=== PATIENT | male | born 1945 | race Caucasian/White ===

== ENCOUNTER 2021-09-01 13:32 | Emergency (ER) | payer MEDICARE, SELFPAY ==
--- NOTE | ~2021-09-01 | XR_ITS ---
XR chest 2V DATE: 09/01/2021 14:27 INDICATION: Cough for 4 to 5 days. Covid-positive. TECHNIQUE: 2 views COMPARISON: None FINDINGS: Normal heart size. No hilar or mediastinal enlargement. Mild to moderate bilateral hyperinf lation. No pulmonary infiltrate or consolidation, pleural effusion or pulmonary vascular congestion o r pneumothorax. Status post anterior cervical spine surgical fusion. Degenerative spurring of the thoracic and lumbar spine. Upper abdominal surgical clips and lateral view, likely due to cholecystectomy cholecystectomy. IMPRESSION: Mild to moderate hyperinflation; no active cardiopulmonary disease Reviewed, dictated and finalized at location [facility].
[2021-09-01 13:43] VITALS: BP 131/71; PULSE 84; RESP 20; TEMP 36.6; O2SAT 99
--- NOTE | 2021-09-01 14:04 | ED.URI ---
HPI - URI/Sore Throat General Chief Complaint: Upper Respiratory Infection Stated Complaint: not feeling well Time Seen by Provider: 09/01/21 14:04 History of Present Illness HPI Narrative: Luiz Hubbard is a 75 yo male with a PMH of COPD, diabetes, neuropathy, glaucoma, GERD, high cholesterol, chronic anticoagulation, headaches, body aches x 5 days, decreased appetite and fatigue also. Exposed to covid on 08/22. Patient is trying to reestablish his relationship with his primary care physician that he had [facility] who switched to [facility]-he followed her in a practice and has appoint with her on Saturday because she knows him and his comorbidities but she cannot come in to see him unless he is negative for COVID Related Data Home Medications Medication Instructions Recorded Confirmed acetaminophen 500 mg capsule 500 mg PO Q6H PRN Pain 01/18/20 09/01/21 albuterol sulfate 8 mg 8 mg PO Q12H 01/18/20 09/01/21 tablet,extended release,12 hr budesonide-formoterol HFA 160 2 puff inhalation Q12H 01/18/20 09/01/21 mcg-4.5 mcg/actuation aerosol inhaler (Symbicort) cholecalciferol (vitamin D3) 10 10 mcg PO DAILY 01/18/20 09/01/21 mcg (400 unit) capsule fluorouracil 0.5 % topical cream 1 applic topical DAILY 01/18/20 09/01/21 gabapentin 300 mg capsule 300 mg PO DAILY 01/18/20 09/01/21 glipizide 10 mg tablet 10 mg PO DAILY 01/18/20 09/01/21 latanoprost 0.005 % eye drops 1 drp ophthalmic (eye) DAILY 01/18/20 09/01/21 metformin 1,000 mg tablet 1,000 mg PO BID 01/18/20 09/01/21 metronidazole 0.75 % topical cream 1 applic topical BID 01/18/20 09/01/21 pantoprazole 40 mg tablet,delayed 40 mg PO QAM 01/18/20 09/01/21 release pravastatin 40 mg tablet 40 mg PO DAILY 01/18/20 09/01/21 triamcinolone acetonide 0.1 % 1 applic dental BID 01/18/20 09/01/21 dental paste warfarin 3 mg tablet 3 mg PO DAILY 01/18/20 09/01/21 albuterol sulfate 90 mcg/actuation inhalation 09/01/21 aerosol inhaler (Ventolin HFA) alprazolam 0.5 mg tablet 1 tablet PRN Anxiety 09/01/21 budesonide-formoterol HFA 160 inhalation 09/01/21 mcg-4.5 mcg/actuation aerosol inhaler (Symbicort) sertraline 50 mg tablet 1 tablet DAILY 09/01/21 09/01/21 Allergies Allergy/AdvReac Type Severity Reaction Status Date / Time moxifloxacin Allergy Mild unknown Verified 09/01/21 13:50 codeine Allergy Unknown Rash Verified 09/01/21 13:50 hydroxychloroquine Allergy Unknown gi Verified 09/01/21 13:50 discomfort Review of Systems Review of Systems: CONSTITUTIONAL: Denies fever, chills, sweats.fatigue, body aches EYES: Denies visual changes, redness, discharge. ENT: Denies rhinorrhea, congestion, sore throat, otalgia. CARDIOVASCULAR: Denies chest pain, palpitations, edema. RESPIRATORY: Denies dyspnea, wheezing, intermittent cough GASTROINTESTINAL: Denies abdominal pain, nausea, vomiting, diarrhea. GENITOURINARY: Denies dysuria, hematuria, abnormal discharge SKIN: Denies rash or itching. NEUROLOGIC: Denies numbness, or focal weakness. PSYCHIATRIC: Denies anxiety or depression. PMFSH Past Medical History Medical History Diabetes GERD (gastroesophageal reflux disease) High cholesterol Hypertension Neuropathy Social History Social History Smoking status: Never smoker Second hand tobacco smoke exposure: No Alcohol intake: former Substance use: never Substance use type: does not use Exam Narrative: GENERAL: This is a well-nourished, well-developed patient, in mild distress. HEAD: normocephalic, atraumatic. EYES: PERRL. Sclera clear/white. Vision is grossly intact. EARS: External ears normal, auditory canals clear and without drainage, TMs normal without perforation. Hearing grossly intact. NOSE: External nose normal without nasal discharge, nares without redness, no rhinorrhea. THROAT: Mucous membranes moist, posterior pharynx mild erythema NECK
== END 2021-09-01 15:33 | disposition home or self-care (01) ==
PROVIDERS: Emergency Provider Nurse Practitioner
DX: U07.1 COVID-19 (principal); J44.9 Chronic obstructive pulmonary disease, unspecified; E11.40 Type 2 diabetes mellitus with diabetic neuropathy, unspecified; E11.39 Type 2 diabetes mellitus with other diabetic ophthalmic complication; H40.9 Unspecified glaucoma; Z79.84 Long term (current) use of oral hypoglycemic drugs; K21.9 Gastro-esophageal reflux disease without esophagitis; E78.00 Pure hypercholesterolemia, unspecified; Z79.01 Long term (current) use of anticoagulants
CPT/HCPCS: 71046; 87426; 99213; C9803; G0463

== ENCOUNTER 2022-03-03 14:25 | Emergency (ER) | payer MEDICARE, SELFPAY ==
[2022-03-03 14:40] VITALS: BP 110/60; PULSE 88; RESP 18; TEMP 36.8; O2SAT 99
--- NOTE | 2022-03-03 14:42 | ED.GENADULT ---
HPI - General Adult General Chief complaint: Upper Respiratory Infection Stated complaint: Right Ear Irritation/Headache/Fever Time Seen by Provider: 03/03/22 14:42 Source: patient, RN notes reviewed and old records reviewed Mode of arrival: ambulatory Limitations: no limitations History of Present Illness HPI narrative: 76-year-old male presents to the [facility] with a right ear pain, redness, feeling swollen that occurred last weekend. States the pain and redness have resolved. Reports pain pain has traveled to the area around the ear and posterior neck. There are no open wounds, swelling or increased erythema. No increased warmth. Patient reports that yesterday he developed a fever of 99.4 States he has taken Tylenol Onset (ago): week(s) (1) Related Data Home Medications Medication Instructions Recorded Confirmed acetaminophen 500 mg capsule 500 mg PO Q6H PRN Pain 01/18/20 09/01/21 albuterol sulfate 8 mg 8 mg PO Q12H 01/18/20 09/01/21 tablet,extended release,12 hr budesonide-formoterol HFA 160 2 puff inhalation Q12H 01/18/20 09/01/21 mcg-4.5 mcg/actuation aerosol inhaler (Symbicort) cholecalciferol (vitamin D3) 10 10 mcg PO DAILY 01/18/20 09/01/21 mcg (400 unit) capsule fluorouracil 0.5 % topical cream 1 applic topical DAILY 01/18/20 09/01/21 gabapentin 300 mg capsule 300 mg PO DAILY 01/18/20 09/01/21 glipizide 10 mg tablet 10 mg PO DAILY 01/18/20 09/01/21 latanoprost 0.005 % eye drops 1 drp ophthalmic (eye) DAILY 01/18/20 09/01/21 metformin 1,000 mg tablet 1,000 mg PO BID 01/18/20 09/01/21 metronidazole 0.75 % topical cream 1 applic topical BID 01/18/20 09/01/21 pantoprazole 40 mg tablet,delayed 40 mg PO QAM 01/18/20 09/01/21 release pravastatin 40 mg tablet 40 mg PO DAILY 01/18/20 09/01/21 triamcinolone acetonide 0.1 % 1 applic dental BID 01/18/20 09/01/21 dental paste warfarin 3 mg tablet 3 mg PO DAILY 01/18/20 09/01/21 albuterol sulfate 90 mcg/actuation inhalation 09/01/21 aerosol inhaler (Ventolin HFA) alprazolam 0.5 mg tablet 1 tablet PRN Anxiety 09/01/21 budesonide-formoterol HFA 160 inhalation 09/01/21 mcg-4.5 mcg/actuation aerosol inhaler (Symbicort) sertraline 50 mg tablet 1 tablet DAILY 09/01/21 09/01/21 Allergies Allergy/AdvReac Type Severity Reaction Status Date / Time moxifloxacin Allergy Mild unknown Verified 03/03/22 14:41 codeine Allergy Unknown Rash Verified 03/03/22 14:41 hydroxychloroquine Allergy Unknown gi Verified 03/03/22 14:41 discomfort Review of Systems Review of Systems: All systems reviewed & are unremarkable except as noted in HPI and below Constitutional: Constitutional: Reports no additional constitutional complaints Eyes: Eyes: Reports no additional eye complaints ENT: Reports as per HPI Cardiovascular: Cardiovascular: Reports no additional cardiovascular complaints, Denies chest pain and Denies dyspnea Respiratory: Respiratory: Reports no additional respiratory complaints, Denies chest congestion, Denies cough and Denies dyspnea Gastrointestinal: Gastrointestinal: Reports no additional gastrointestinal complaints, Denies abdominal pain, Denies nausea and Denies vomiting Musculoskeletal: Musculoskeletal: Reports no additional musculoskeletal complaints Integumentary/Breasts: Skin/Breast: Reports system reviewed and no additional complaints, except as docu Neurologic: Reports system reviewed and no additional complaints, except as documented Psychiatric: Psychiatric: Reports no additional psychiatric complaints Allergic/Immunologic: Allergic/Immunologic: Reports no additional allergic/immunologic complaints [facility] Past Medical History Medical History Diabetes GERD (gastroesophageal reflux disease) High cholesterol Hypertension Neuropathy Social History Social History Smoking status: Never smoker Second hand tobacco smoke
== END 2022-03-03 15:14 | disposition home or self-care (01) ==
PROVIDERS: Emergency Provider Nurse Practitioner; PCP Family Medicine Sports Medicine
DX: B34.9 Viral infection, unspecified (principal); Z20.822 Contact with and (suspected) exposure to COVID-19; K21.9 Gastro-esophageal reflux disease without esophagitis; E78.00 Pure hypercholesterolemia, unspecified; I10 Essential (primary) hypertension; E11.40 Type 2 diabetes mellitus with diabetic neuropathy, unspecified
CPT/HCPCS: 87426; 87804; 99213; C9803; G0463

== ENCOUNTER 2022-10-17 18:19 | Emergency (ER) | payer MEDICARE, SELFPAY ==
--- NOTE | 2022-10-17 18:32 | ED.URI ---
HPI - URI/Sore Throat General Chief Complaint: Upper Respiratory Infection Stated Complaint: Sinus/Sore Throat Time Seen by Provider: 10/17/22 18:55 Source: patient and RN notes reviewed Mode of arrival: ambulatory Limitations: no limitations History of Present Illness HPI Narrative: 77-year-old male presents with concern for nasal congestion, rhinorrhea, postnasal drainage, sore throat, occasional cough. Reports symptoms started 2 days ago his primary care doctor wanted him to be tested for COVID. He denies fever, aches, chills, sweats. Denies known sick contacts. MD elicited complaint: rhinorrhea and nasal congestion Related Data Home Medications Medication Instructions Recorded Confirmed acetaminophen 500 mg capsule 500 mg PO Q6H PRN Pain 01/18/20 09/01/21 albuterol sulfate 8 mg 8 mg PO Q12H 01/18/20 09/01/21 tablet,extended release,12 hr cholecalciferol (vitamin D3) 10 10 mcg PO DAILY 01/18/20 09/01/21 mcg (400 unit) capsule fluorouracil 0.5 % topical cream 1 applic topical DAILY 01/18/20 09/01/21 gabapentin 300 mg capsule 300 mg PO DAILY 01/18/20 09/01/21 glipizide 10 mg tablet 10 mg PO DAILY 01/18/20 09/01/21 latanoprost 0.005 % eye drops 1 drp ophthalmic (eye) DAILY 01/18/20 09/01/21 metformin 1,000 mg tablet 1,000 mg PO BID 01/18/20 09/01/21 metronidazole 0.75 % topical cream 1 applic topical BID 01/18/20 09/01/21 pantoprazole 40 mg tablet,delayed 40 mg PO QAM 01/18/20 09/01/21 release pravastatin 40 mg tablet 40 mg PO DAILY 01/18/20 09/01/21 triamcinolone acetonide 0.1 % 1 applic dental BID 01/18/20 09/01/21 dental paste warfarin 3 mg tablet 3 mg PO DAILY 01/18/20 09/01/21 albuterol sulfate 90 mcg/actuation inhalation 09/01/21 aerosol inhaler (Ventolin HFA) alprazolam 0.5 mg tablet 1 tablet PRN Anxiety 09/01/21 budesonide-formoterol HFA 160 inhalation 07/08/22 mcg-4.5 mcg/actuation aerosol inhaler (Symbicort) sertraline 50 mg tablet 1 tablet DAILY 09/01/21 09/01/21 Allergies Allergy/AdvReac Type Severity Reaction Status Date / Time moxifloxacin Allergy Mild unknown Verified 10/17/22 18:33 codeine Allergy Unknown Rash Verified 10/17/22 18:33 hydroxychloroquine Allergy Unknown gi Verified 10/17/22 18:33 discomfort Review of Systems Review of Systems: CONSTITUTIONAL: Denies malaise, chills, sweats, or fever. EYES: Denies visual changes, redness, or discharge. ENT: Reports rhinorrhea, congestion, mild sore throat. Denies sinus pain, otalgia CARDIOVASCULAR: Denies chest pain, palpitations, or edema. RESPIRATORY: Reports occasional cough. Denies dyspnea. GASTROINTESTINAL: Denies abdominal pain, nausea, vomiting, diarrhea SKIN: Denies rash or itching. MUSCULOSKELETAL: Denies myalgia. NEUROLOGIC: Denies headache. All systems reviewed & are unremarkable except as noted in HPI and below PMFSH Past Medical History Medical History Diabetes GERD (gastroesophageal reflux disease) High cholesterol Hypertension Neuropathy Social History Social History Smoking status: Never smoker Second hand tobacco smoke exposure: No Alcohol intake: former Substance use: never Substance use type: does not use Comments At time of signature, agree with nursing past medical, surgical, social and family history. There is no relevant family history pertinent to the presenting complaint Exam Narrative: GENERAL: Well-appearing, well-nourished, and in no acute distress. HEAD: Normocephalic EYES: PERRLA, conjunctivae clear ENT: Nares clear, turbinates edematous and erythematous, clear discharge. Mucous membranes moist. TM pearly zhao with dull light reflex bilaterally; no tragal tenderness. Oropharynx not erythematous without lesions. Tonsils not enlarged and without exudate, no drooling, no hoarseness, no trismus, uvula midline. NECK: Supple. No lymphadenopathy CHEST: Clear to auscul
[2022-10-17 18:35] VITALS: BP 122/82; PULSE 74; RESP 18; TEMP 36.9; O2SAT 100
== END 2022-10-17 19:13 | disposition home or self-care (01) ==
PROVIDERS: Emergency Provider Nurse Practitioner
DX: J06.9 Acute upper respiratory infection, unspecified (principal); Z20.822 Contact with and (suspected) exposure to COVID-19; K21.9 Gastro-esophageal reflux disease without esophagitis; E78.00 Pure hypercholesterolemia, unspecified; I10 Essential (primary) hypertension; E11.40 Type 2 diabetes mellitus with diabetic neuropathy, unspecified; Z79.84 Long term (current) use of oral hypoglycemic drugs
CPT/HCPCS: 87426; 99213; C9803; G0463

== ENCOUNTER 2025-01-18 11:15 | Outpatient (RCR) | payer MEDICARE, SELFPAY ==
[2024-11-24 16:03] VITALS: BP 142/70; PULSE 75; RESP 18; O2SAT 95
[2024-11-24 16:29] VITALS: PULSE 70
== END 2025-02-22 14:26 | disposition home or self-care (01) ==
LOC: ANHCPREHAB 11:15
PROVIDERS: PCP Family Medicine
DX: Z95.2 Presence of prosthetic heart valve (principal)
CPT/HCPCS: 93798